=== PATIENT | female | born 1995 | race Caucasian/White ===

== ENCOUNTER 2016-12-04 08:14 | Outpatient (CLI) | payer OTHER | END 2016-12-04 08:15 | disposition home or self-care (01) | LOC: CP 08:14 | PROVIDERS: ATTEND Family Medicine | DX: J45.901 Unspecified asthma with (acute) exacerbation (principal) | CPT/HCPCS: 94060 ==

== ENCOUNTER 2019-03-31 15:29 | Outpatient (CLI) | payer BC ==
--- NOTE | 2019-03-31 16:09 | RAD ---
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 No pneumothorax or pleural fluid. No focal consolidation or alveolar edema. IMPRESSION: No acute findings.
--- NOTE | 2019-03-31 16:10 | RAD ---
4 views of the sacroiliac joints: 03/31/2019 COMPARISON: None HISTORY: Back pain FINDINGS: No fracture or dislocation. There is an IUD overlying the pelvis. No widening of the sacroi liac joints. IMPRESSION: No acute findings.
== END 2019-03-31 15:30 | disposition home or self-care (01) ==
LOC: SCSRAD 15:29
PROVIDERS: ATTEND Internal Medicine Rheumatology
DX: M54.89 Other dorsalgia (principal); E55.9 Vitamin D deficiency, unspecified; R06.09 Other forms of dyspnea
CPT/HCPCS: 71046; 72202